=== PATIENT | female | born 1985 | race African-American/Black ===

== ENCOUNTER 2019-01-24 19:50 | Emergency (ER) | payer SELFPAY ==
[~2019-01-24] VITALS: Ht 167.6 cm; Wt 66.0 kg
[2019-01-24] MEDS ORDERED: TETANUS, DIPHTHERIA, PERTUSSIS VAC/PF 0.5ML (>7YR OLD) IM ONE (20:45)
[2019-01-24] MEDS ORDERED: IBUPROFEN 800MG TABLET PO ONE (20:45)
[2019-01-24] MEDS ORDERED: HYDROCODONE/ACETAMINOPHEN 10/325MG TABLET PO ONE (20:45)
[2019-01-24] MEDS ORDERED: LIDOCAINE 1%/EPI 1:100,000 10 ML VIAL IJ ONE (20:45)
[2019-01-24] MEDS ORDERED: BACITRACIN ZINC OINT UDPKT TOP ONE (20:45)
[2019-01-24 21:03] LABS: BASOPHILS % 0.8 % (0.0-2.0); EOSINOPHILS % 1.2 % (0.0-5.0); HEMATOCRIT. 38.7 % (36.0-48.0); HEMOGLOBIN. 12.8 g/dL (12.0-16.0); LYMPHOCYTES % 34.7 % (20.0-50.0); MEAN CORPUSCULAR HEMOGLOBIN 28.8 pg (28.0-32.0); MEAN CORPUSCULAR VOLUME 86.9 fL (81.0-99.0); MEAN PLATELET VOLUME 7.5 fl (7.4-10.4); MONOCYTES % 6.9 % (2.0-8.0); NEUTROPHILS % 56.4 % (40.0-76.0); PLATELET 262 x1000/uL (130-400); RED BLOOD CELL COUNT 4.45 mill/uL (4.2-5.4); RED CELL DISTRIBUTION WIDTH 16.2 % (11.6-14.6)
[2019-01-24 21:09] LABS: CHLORIDE 108 mEq/L (98-107)
[2019-01-24 21:12] LABS: ETHANOL BLOOD 88 mg/dL
[2019-01-24 21:13] LABS: HCG SCREEN NEGATIVE
[2019-01-25] MEDS ORDERED: IBUPROFEN 600MG TABLET PO ONE ×2 (11:00→19:45)
[2019-01-25] MEDS ORDERED: HYDROCODONE/ACETAMINOPHEN 5/325MG TABLET PO ONE (11:00)
[2019-01-26 13:18] VITALS: BP 110/52
== END 2019-01-26 13:20 | disposition home or self-care (01) ==
LOC: ER 19:50
DX: S61.412A Laceration without foreign body of left hand, initial encounter (principal); S61.512A Laceration without foreign body of left wrist, initial encounter; F17.200 Nicotine dependence, unspecified, uncomplicated; F12.10 Cannabis abuse, uncomplicated; F31.9 Bipolar disorder, unspecified; F20.9 Schizophrenia, unspecified; W25.XXXA Contact with sharp glass, initial encounter; Y93.89 Activity, other specified; Y92.89 Other specified places as the place of occurrence of the external cause; Y99.8 Other external cause status
CPT/HCPCS: 12002; 36415; 73100; 73120; 80053; 80307; 80320; 80329; 84443; 84703; 85025; 90471; 90715; 99284; J3490; Z7610; G0480

== ENCOUNTER 2019-02-02 22:31 | Emergency (ER) | payer MEDICAID ==
[~2019-02-02] VITALS: Ht 167.6 cm; Wt 66.0 kg
[2019-02-03] MEDS ORDERED: ACETAMINOPHEN 325MG TABLET PO ONE (00:45)
[2019-02-03 01:12] VITALS: BP 135/85
[2019-02-03] MEDS ORDERED: LIDOCAINE HCL 1% 20ML VIAL (Pyxis) INJ INFIL ONE (01:30)
== END 2019-02-03 01:27 | disposition home or self-care (01) ==
LOC: ER 22:31
DX: Z48.02 Encounter for removal of sutures (principal); L03.114 Cellulitis of left upper limb
CPT/HCPCS: 99283

== ENCOUNTER 2019-05-07 06:13 | Emergency (ER) | payer MEDICAID ==
[~2019-05-07] VITALS: Ht 162.6 cm; Wt 64.0 kg
[2019-05-07] MEDS ORDERED: LORAZEPAM 2MG/ML CPJ IV STA (07:14)
[2019-05-07] MEDS ORDERED: LORAZEPAM 1MG TABLET PO ONE ×2 (07:30→16:30)
[2019-05-07 07:59] LABS: BASOPHILS % 0.7 % (0.0-2.0); EOSINOPHILS % 0.4 % (0.0-5.0); HEMATOCRIT. 35.3 % (36.0-48.0); HEMOGLOBIN. 11.9 g/dL (12.0-16.0); LYMPHOCYTES % 28.2 % (20.0-50.0); MEAN CORPUSCULAR HEMOGLOBIN 30.5 pg (28.0-32.0); MEAN CORPUSCULAR VOLUME 90.5 fL (81.0-99.0); MEAN PLATELET VOLUME 7.5 fl (7.4-10.4); MONOCYTES % 9.4 % (2.0-8.0); NEUTROPHILS % 61.3 % (40.0-76.0); PLATELET 237 x1000/uL (130-400); RED CELL DISTRIBUTION WIDTH 14.1 % (11.6-14.6)
[2019-05-07 08:05] LABS: CHLORIDE 106 mEq/L (98-107)
[2019-05-07 08:09] LABS: ETHANOL BLOOD < 10 mg/dL
[2019-05-07 08:13] LABS: CREATINE KINASE 222 IU/L (26-192)
[2019-05-07 08:56] LABS: CLARITY URINE CLOUDY (CLEAR); COLOR URINE DARK YELLOW (YELLOW); KETONES URINE TRACE (NEGATIVE); LEUKOCYTE ESTERASE URINE TRACE (NEGATIVE); NITRITE URINE NEGATIVE (NEGATIVE); OCCULT BLOOD URINE NEGATIVE (NEGATIVE); PROTEIN URINE 2+ (NEGATIVE)
[2019-05-07 09:10] LABS: *BARBITURATES SCREEN URINE NEGATIVE (NEGATIVE); *BENZODIAZEPINES SCREEN URINE NEGATIVE (NEGATIVE); METHADONE URINE SCREEN NEGATIVE (NEGATIVE); OPIATES URINE SCREEN NEGATIVE (NEGATIVE)
[2019-05-07 09:11] LABS: *AMPHETAMINES SCREEN URINE PRESUMTIVE POSITIVE (NEGATIVE)
[2019-05-07 09:12] LABS: *COCAINE SCREEN URINE PRESUMTIVE POSITIVE (NEGATIVE); CANNABINOID URINE SCREEN PRESUMTIVE POSITIVE (NEGATIVE); PHENCYCLIDINE URINE SCREEN PRESUMTIVE POSITIVE (NEGATIVE)
[2019-05-07] MEDS: NITROFURANTOIN 100MG M/M CAPSULE PO SCH ×2 (10:47→21:00)
[2019-05-08] MEDS ORDERED: ACETAMINOPHEN 325MG TABLET PO ONE (05:15)
[2019-05-08] MEDS ORDERED: LORAZEPAM 2MG/ML CPJ IM ONE (08:45)
[2019-05-08] MEDS: NITROFURANTOIN 100MG M/M CAPSULE PO SCH ×2 (09:03→21:07)
[2019-05-08] MEDS ORDERED: DIPHENHYDRAMINE 50MG CAPSULE PO ONE (23:30)
[2019-05-09] MEDS: OLANZAPINE 5MG TABLET PO SCH ×2 (00:53→21:14)
[2019-05-09] MEDS ORDERED: LORAZEPAM 2MG/ML CPJ IM ONE (05:45)
[2019-05-09] MEDS: NITROFURANTOIN 100MG M/M CAPSULE PO SCH ×2 (09:46→21:14)
[2019-05-10] MEDS ORDERED: NITROFURANTOIN 100MG M/M CAPSULE PO ONE (09:40)
[2019-05-10] MEDS: NITROFURANTOIN 100MG M/M CAPSULE PO SCH (09:43)
[2019-05-10] MEDS ORDERED: IBUPROFEN 400MG TABLET PO ONE (15:00)
[2019-05-10 16:15] VITALS: BP 110/69
== END 2019-05-10 16:17 ==
LOC: ER 06:13
DX: F20.9 Schizophrenia, unspecified (principal); F29 Unspecified psychosis not due to a substance or known physiological condition; F19.10 Other psychoactive substance abuse, uncomplicated; R45.851 Suicidal ideations; F31.9 Bipolar disorder, unspecified; F17.200 Nicotine dependence, unspecified, uncomplicated; Z59.0 Homelessness
CPT/HCPCS: 36415; 80053; 80305; 80307; 80320; 80329; 81003; 82550; 84443; 85025; 96372; 99285; J2060; Q0163; G0480

== ENCOUNTER 2019-05-31 11:07 | Emergency (ER) | payer MEDICAID ==
[~2019-05-31] VITALS: Ht 167.6 cm; Wt 62.0 kg
[2019-05-31] MEDS ORDERED: SODIUM CHLORIDE 0.9% 1,000 ML IV ONE (12:11)
[2019-05-31] MEDS ORDERED: VISCOUS LIDOCAINE 2% 15 ML UDC PO STA (12:11)
[2019-05-31] MEDS ORDERED: MAGNESIUM/ALUMINUM HYDROXIDE/SIMETHICONE 30ML UDC PO STA (12:11)
[2019-05-31] MEDS ORDERED: METOCLOPRAMIDE HCL 10MG/2ML VIAL IV ONE (12:15)
[2019-05-31] MEDS ORDERED: DIPHENHYDRAMINE 50MG/ML VIAL IM ONE (12:15)
[2019-05-31] MEDS ORDERED: METOCLOPRAMIDE HCL 10MG TABLET PO ONE (12:15)
[2019-05-31] MEDS ORDERED: OLANZAPINE 10 MG/VIAL IM ONE (12:15)
[2019-05-31] MEDS ORDERED: DICYCLOMINE HCL 10MG/ML 2ML AMP IM ONE (12:15)
[2019-05-31] MEDS ORDERED: FAMOTIDINE 20MG TABLET PO ONE (12:15)
[2019-05-31] MEDS ORDERED: FAMOTIDINE 20MG/2ML VIAL IV ONE (12:15)
[2019-05-31] MEDS ORDERED: DIPHENHYDRAMINE 50MG/ML VIAL IV ONE (12:15)
[2019-05-31 12:41] LABS: BASOPHILS % 0.3 % (0.0-2.0); EOSINOPHILS % 0.1 % (0.0-5.0); HEMATOCRIT. 38.3 % (36.0-48.0); HEMOGLOBIN. 12.9 g/dL (12.0-16.0); LYMPHOCYTES % 8.8 % (20.0-50.0); MEAN CORPUSCULAR HEMOGLOBIN 30.7 pg (28.0-32.0); MEAN CORPUSCULAR VOLUME 91.1 fL (81.0-99.0); MEAN PLATELET VOLUME 7.2 fl (7.4-10.4); MONOCYTES % 10.1 % (2.0-8.0); NEUTROPHILS % 80.7 % (40.0-76.0); PLATELET 225 x1000/uL (130-400); RED CELL DISTRIBUTION WIDTH 14.1 % (11.6-14.6)
[2019-05-31 12:48] LABS: CHLORIDE 103 mEq/L (98-107)
[2019-05-31 12:52] LABS: ETHANOL BLOOD 38 mg/dL
[2019-05-31 12:53] LABS: INR 1.1; PROTHROMBIN TIME 10.9 sec (9.6-11.0)
[2019-05-31 14:56] LABS: CLARITY URINE CLEAR (CLEAR); COLOR URINE DARK YELLOW (YELLOW); KETONES URINE TRACE (NEGATIVE); LEUKOCYTE ESTERASE URINE 1+ (NEGATIVE); NITRITE URINE NEGATIVE (NEGATIVE); OCCULT BLOOD URINE NEGATIVE (NEGATIVE); PROTEIN URINE 1+ (NEGATIVE); SPECIFIC GRAVITY URINE 1.026 (1.005-1.030)
[2019-05-31 15:13] LABS: *BARBITURATES SCREEN URINE NEGATIVE (NEGATIVE); *BENZODIAZEPINES SCREEN URINE NEGATIVE (NEGATIVE); METHADONE URINE SCREEN NEGATIVE (NEGATIVE)
[2019-05-31 15:14] LABS: CANNABINOID URINE SCREEN NEGATIVE (NEGATIVE)
[2019-05-31 15:15] LABS: *AMPHETAMINES SCREEN URINE PRESUMTIVE POSITIVE (NEGATIVE); *COCAINE SCREEN URINE PRESUMTIVE POSITIVE (NEGATIVE); OPIATES URINE SCREEN PRESUMTIVE POSITIVE (NEGATIVE); PHENCYCLIDINE URINE SCREEN PRESUMTIVE POSITIVE (NEGATIVE)
[2019-06-01 08:00] VITALS: BP 129/72
[2019-06-01] MEDS ORDERED: QUETIAPINE FUMARATE 25MG TABLET PO SCH (09:15)
[2019-06-01] MEDS ORDERED: LORAZEPAM 1MG TABLET PO ONE (09:15)
== END 2019-06-01 10:01 | disposition left against medical advice (07) ==
LOC: ER 11:07
DX: R10.9 Unspecified abdominal pain (principal); K59.00 Constipation, unspecified; D72.829 Elevated white blood cell count, unspecified; F19.10 Other psychoactive substance abuse, uncomplicated; F11.10 Opioid abuse, uncomplicated; F15.10 Other stimulant abuse, uncomplicated; F14.10 Cocaine abuse, uncomplicated; F20.9 Schizophrenia, unspecified; F31.9 Bipolar disorder, unspecified
CPT/HCPCS: 36415; 80053; 80305; 80307; 80320; 80329; 81003; 81025; 83690; 85025; 85610; 96372; 99283; J0500; J1200; J3490; J7030; J8597; G0480

== ENCOUNTER 2019-06-01 11:19 | Emergency (ER) | payer MEDICAID ==
[~2019-06-01] VITALS: Ht 170.2 cm; Wt 59.0 kg
[2019-06-01 11:28] VITALS: BP 132/72
== END 2019-06-01 20:17 | disposition left against medical advice (07) ==
LOC: ER 11:19
DX: F29 Unspecified psychosis not due to a substance or known physiological condition (principal); Z53.21 Procedure and treatment not carried out due to patient leaving prior to being seen by health care provider

== ENCOUNTER 2019-06-10 22:42 | Emergency (ER) | payer MEDICAID ==
[~2019-06-10] VITALS: Ht 167.6 cm; Wt 59.0 kg
[2019-06-11] MEDS ORDERED: IBUPROFEN 600MG TABLET PO STA (00:50)
[2019-06-11 06:12] VITALS: BP 134/84
== END 2019-06-11 06:15 | disposition home or self-care (01) ==
LOC: ER 22:42
DX: J20.9 Acute bronchitis, unspecified (principal); F12.10 Cannabis abuse, uncomplicated; F31.9 Bipolar disorder, unspecified; F20.9 Schizophrenia, unspecified; Z98.890 Other specified postprocedural states
CPT/HCPCS: 71045; 99283

== ENCOUNTER 2019-07-17 20:39 | Emergency (ER) | payer MEDICAID ==
[~2019-07-17] VITALS: Ht 167.6 cm; Wt 67.0 kg
[2019-07-17] MEDS ORDERED: LORAZEPAM 2MG/ML CPJ IM STA (22:38)
[2019-07-17] MEDS ORDERED: OLANZAPINE 10 MG/VIAL IM ONE (22:45)
[2019-07-17 23:08] LABS: CLARITY URINE CLEAR (CLEAR); COLOR URINE YELLOW (YELLOW); KETONES URINE TRACE (NEGATIVE); LEUKOCYTE ESTERASE URINE TRACE (NEGATIVE); NITRITE URINE NEGATIVE (NEGATIVE); OCCULT BLOOD URINE NEGATIVE (NEGATIVE); PH URINE 5.5 (4.5-8.0); PROTEIN URINE NEGATIVE (NEGATIVE); SPECIFIC GRAVITY URINE 1.028 (1.005-1.030)
[2019-07-17] MEDS ORDERED: IBUPROFEN 400MG TABLET PO ONE (23:15)
[2019-07-17 23:30] LABS: *BARBITURATES SCREEN URINE NEGATIVE (NEGATIVE)
[2019-07-17 23:31] LABS: *BENZODIAZEPINES SCREEN URINE NEGATIVE (NEGATIVE); METHADONE URINE SCREEN NEGATIVE (NEGATIVE); OPIATES URINE SCREEN NEGATIVE (NEGATIVE)
[2019-07-17 23:32] LABS: CHLORIDE 106 mEq/L (98-107)
[2019-07-17 23:32] LABS: CANNABINOID URINE SCREEN NEGATIVE (NEGATIVE)
[2019-07-17 23:36] LABS: ETHANOL BLOOD < 10 mg/dL
[2019-07-17 23:43] LABS: BASOPHILS % 0.5 % (0.0-2.0); EOSINOPHILS % 0.5 % (0.0-5.0); HEMOGLOBIN. 11.8 g/dL (12.0-16.0); LYMPHOCYTES % 32.8 % (20.0-50.0); MEAN CORPUSCULAR HEMOGLOBIN 30.6 pg (28.0-32.0); MEAN CORPUSCULAR VOLUME 90.3 fL (81.0-99.0); MEAN PLATELET VOLUME 7.7 fl (7.4-10.4); MONOCYTES % 11.6 % (2.0-8.0); NEUTROPHILS % 54.6 % (40.0-76.0); PLATELET 285 x1000/uL (130-400); RED BLOOD CELL COUNT 3.87 mill/uL (4.2-5.4); RED CELL DISTRIBUTION WIDTH 14.9 % (11.6-14.6)
[2019-07-17 23:48] LABS: *AMPHETAMINES SCREEN URINE PRESUMTIVE POSITIVE (NEGATIVE); *COCAINE SCREEN URINE PRESUMTIVE POSITIVE (NEGATIVE); PHENCYCLIDINE URINE SCREEN PRESUMTIVE POSITIVE (NEGATIVE)
[2019-07-17 23:53] LABS: HCG SCREEN NEGATIVE
[2019-07-18] MEDS ORDERED: LIDOCAINE HCL 1% 20ML VIAL (Pyxis) INJ INFIL ONE (00:30)
[2019-07-18] MEDS ORDERED: CEFTRIAXONE SODIUM 1 G/VIAL IM ONE (00:30)
[2019-07-18] MEDS ORDERED: LORAZEPAM 2MG/ML CPJ IM PRN (14:30)
[2019-07-18] MEDS ORDERED: HALOPERIDOL LACTATE 5MG/ML VIAL IM ONE (14:30)
[2019-07-19] MEDS ORDERED: VENLAFAXINE HCL 37.5MG SR CAPSULE 24HR PO SCH (09:30)
[2019-07-19] MEDS ORDERED: LORAZEPAM 1MG TABLET PO ONE (09:30)
[2019-07-19 10:32] VITALS: BP 113/62
[2019-07-19] MEDS ORDERED: OLANZAPINE 10MG TABLET PO SCH (21:00)
== END 2019-07-19 13:42 ==
LOC: ER 20:39
DX: F23 Brief psychotic disorder (principal); N39.0 Urinary tract infection, site not specified; M79.672 Pain in left foot; M25.572 Pain in left ankle and joints of left foot; R51 Headache; F31.9 Bipolar disorder, unspecified; R45.851 Suicidal ideations; F15.10 Other stimulant abuse, uncomplicated; F12.10 Cannabis abuse, uncomplicated; F17.210 Nicotine dependence, cigarettes, uncomplicated; Z91.14 Patient's other noncompliance with medication regimen; Z75.1 Person awaiting admission to adequate facility elsewhere
CPT/HCPCS: 36415; 70450; 73610; 73620; 80053; 80305; 80307; 80320; 80329; 81003; 84703; 85025; 87086; 96372; 99285; J0696; J1630; J2060; J3490; Z7610; G0480

== ENCOUNTER 2019-10-05 13:10 | Emergency (ER) | payer MEDICAID ==
[~2019-10-05] VITALS: Ht 172.7 cm; Wt 85.0 kg
[2019-10-05] MEDS ORDERED: ACETAMINOPHEN 325MG TABLET PO PRN (14:15)
[2019-10-05 14:35] LABS: BASOPHILS % 0.5 % (0.0-2.0); EOSINOPHILS % 0.9 % (0.0-5.0); HEMATOCRIT. 37.7 % (36.0-48.0); HEMOGLOBIN. 12.7 g/dL (12.0-16.0); LYMPHOCYTES % 24.6 % (20.0-50.0); MEAN CORPUSCULAR HEMOGLOBIN 30.7 pg (28.0-32.0); MEAN CORPUSCULAR VOLUME 91.2 fL (81.0-99.0); MEAN PLATELET VOLUME 8.3 fl (7.4-10.4); MONOCYTES % 8.5 % (2.0-8.0); NEUTROPHILS % 65.5 % (40.0-76.0); PLATELET 260 x1000/uL (130-400); RED BLOOD CELL COUNT 4.13 mill/uL (4.2-5.4); RED CELL DISTRIBUTION WIDTH 15.3 % (11.6-14.6)
[2019-10-05 14:37] LABS: CHLORIDE 106 mEq/L (98-107)
[2019-10-05 15:01] LABS: B-HCG QUANTITATIVE 5282 mIU/mL (<3)
[2019-10-05] MEDS ORDERED: RHO(D) IMMUNE GLOBULIN 300 MCG/SYR IM ONE (17:00)
[2019-10-05 17:33] LABS: CLARITY URINE CLEAR (CLEAR); COLOR URINE YELLOW (YELLOW); KETONES URINE NEGATIVE (NEGATIVE); LEUKOCYTE ESTERASE URINE 2+ (NEGATIVE); NITRITE URINE NEGATIVE (NEGATIVE); OCCULT BLOOD URINE 3+ (NEGATIVE); PH URINE 7.5 (4.5-8.0); PROTEIN URINE 3+ (NEGATIVE); SPECIFIC GRAVITY URINE 1.017 (1.005-1.030)
[2019-10-05] MEDS ORDERED: CEFTRIAXONE 1 G PREMIX 50 ML IV NR (19:00)
[2019-10-05 20:51] VITALS: BP 120/75
[2019-10-05] MEDS ORDERED: OLANZAPINE 10MG TABLET PO SCH (21:00)
[2019-10-06] MEDS ORDERED: VENLAFAXINE HCL 75MG TABLET PO SCH (09:00)
== END 2019-10-05 20:52 | disposition home or self-care (01) ==
LOC: ER 13:10
DX: O46.90 Antepartum hemorrhage, unspecified, unspecified trimester (principal); O26.899 Other specified pregnancy related conditions, unspecified trimester; R45.1 Restlessness and agitation; F17.200 Nicotine dependence, unspecified, uncomplicated; Z3A.00 Weeks of gestation of pregnancy not specified
CPT/HCPCS: 36415; 76801; 76817; 80053; 81003; 81025; 84702; 85025; 86850; 86900; 86901; 90384; 96372; 96374; 99285; J0696

== ENCOUNTER 2019-10-08 12:12 | Emergency (ER) | payer MEDICAID ==
[~2019-10-08] VITALS: Ht 165.1 cm; Wt 68.5 kg
[2019-10-08 12:22] VITALS: BP 138/90
[2019-10-08] MEDS ORDERED: zyprexa (12:22)
[2019-10-08] MEDS ORDERED: effexor (12:22)
== END 2019-10-08 13:45 | disposition home or self-care (01) ==
LOC: ER 12:12
DX: N93.9 Abnormal uterine and vaginal bleeding, unspecified (principal)
CPT/HCPCS: 36415; 84702; 99283; 99284

== ENCOUNTER 2020-03-21 17:15 | Inpatient (IN) | payer MEDICAID ==
[~2020-03-21] VITALS: Ht 165.1 cm; Wt 68.0 kg
[~2020-03-21 17:15] MED LIST: effexor; zyprexa
[2020-03-21] MEDS ORDERED: SODIUM CHLORIDE 0.9% 1,000 ML IV ONE (18:51)
[2020-03-21] MEDS ORDERED: KETOROLAC 30MG/ML VIAL IV STA (18:51)
[2020-03-21 19:33] LABS: BASOPHILS % 0.6 % (0.0-2.0); EOSINOPHILS % 0.8 % (0.0-5.0); HEMATOCRIT. 35.6 % (36.0-48.0); HEMOGLOBIN. 11.7 g/dL (12.0-16.0); LYMPHOCYTES % 21.7 % (20.0-50.0); MEAN CORPUSCULAR HEMOGLOBIN 28.6 pg (28.0-32.0); MEAN CORPUSCULAR VOLUME 86.8 fL (81.0-99.0); MEAN PLATELET VOLUME 7.3 fl (7.4-10.4); MONOCYTES % 6.7 % (2.0-8.0); NEUTROPHILS % 70.2 % (40.0-76.0); PLATELET 249 x1000/uL (130-400); RED CELL DISTRIBUTION WIDTH 18.6 % (11.6-14.6)
[2020-03-21 19:35] LABS: CHLORIDE 104 mEq/L (98-107)
[2020-03-21 19:39] LABS: ETHANOL BLOOD < 10 mg/dL
[2020-03-21 19:44] LABS: HCG SCREEN NEGATIVE
[2020-03-21] MEDS ORDERED: MORPHINE SULFATE 4 MG/ML CPJ (NOT FOR IM USE) IV ONE ×2 (20:45→21:00)
[2020-03-21] MEDS ORDERED: ONDANSETRON HCL 4MG/2ML INJ IV ONE (21:00)
[2020-03-21 21:49] LABS: *AMPHETAMINES SCREEN URINE NEGATIVE (NEGATIVE); *BARBITURATES SCREEN URINE NEGATIVE (NEGATIVE); *BENZODIAZEPINES SCREEN URINE NEGATIVE (NEGATIVE); *COCAINE SCREEN URINE NEGATIVE (NEGATIVE); METHADONE URINE SCREEN NEGATIVE (NEGATIVE); OPIATES URINE SCREEN NEGATIVE (NEGATIVE)
[2020-03-21 21:50] LABS: CANNABINOID URINE SCREEN NEGATIVE (NEGATIVE); PHENCYCLIDINE URINE SCREEN NEGATIVE (NEGATIVE)
[2020-03-21 23:54] VITALS: BP 152/111
[2020-03-22] VITALS (13 sets, daily range): BP systolic 108–159; BP diastolic 66–101
[2020-03-22] MEDS: ONDANSETRON HCL 4MG/2ML INJ IV PRN ×3 (00:55→17:38)
[2020-03-22] MEDS: MORPHINE SULFATE 2 MG/ML CPJ (NOT FOR IM USE) IV PRN ×5 (00:57→20:45)
[2020-03-22] MEDS: DEXT 5%/0.45% NACL KCL 20MEQ/L 1,000 ML IV SCH ×3 (02:29→17:38)
[2020-03-22 07:18] LABS: BASOPHILS % 0.3 % (0.0-2.0); EOSINOPHILS % 1.2 % (0.0-5.0); HEMATOCRIT. 32.8 % (36.0-48.0); HEMOGLOBIN. 10.7 g/dL (12.0-16.0); MEAN CORPUSCULAR HEMOGLOBIN 28.1 pg (28.0-32.0); MEAN CORPUSCULAR VOLUME 85.8 fL (81.0-99.0); MEAN PLATELET VOLUME 7.5 fl (7.4-10.4); MONOCYTES % 12.5 % (2.0-8.0); PLATELET 231 x1000/uL (130-400); RED BLOOD CELL COUNT 3.82 mill/uL (4.2-5.4)
[2020-03-22 07:56] LABS: CHLORIDE 104 mEq/L (98-107)
[2020-03-22] MEDS: PANTOPRAZOLE SODIUM 40 MG/VIAL IV SCH (08:46)
[2020-03-22] MEDS: HYDROCODONE/ACETAMINOPHEN 5/325MG TABLET PO PRN (15:13)
[2020-03-23] VITALS (12 sets, daily range): BP systolic 103–137; BP diastolic 61–82
[2020-03-23] MEDS: DEXT 5%/0.45% NACL KCL 20MEQ/L 1,000 ML IV SCH (01:44)
[2020-03-23 06:13] LABS: CHLORIDE 105 mEq/L (98-107)
[2020-03-23 06:17] LABS: BASOPHILS % 0.1 % (0.0-2.0); EOSINOPHILS % 2.2 % (0.0-5.0); HEMATOCRIT. 32.3 % (36.0-48.0); HEMOGLOBIN. 10.7 g/dL (12.0-16.0); LYMPHOCYTES % 28.1 % (20.0-50.0); MEAN CORPUSCULAR HEMOGLOBIN 28.7 pg (28.0-32.0); MEAN CORPUSCULAR VOLUME 86.5 fL (81.0-99.0); MEAN PLATELET VOLUME 7.4 fl (7.4-10.4); MONOCYTES % 14.3 % (2.0-8.0); NEUTROPHILS % 55.3 % (40.0-76.0); PLATELET 225 x1000/uL (130-400); RED BLOOD CELL COUNT 3.73 mill/uL (4.2-5.4); RED CELL DISTRIBUTION WIDTH 19.1 % (11.6-14.6)
[2020-03-23] MEDS: PANTOPRAZOLE SODIUM 40 MG/VIAL IV SCH (09:21)
[2020-03-23] MEDS: HYDROCODONE/ACETAMINOPHEN 5/325MG TABLET PO PRN ×4 (09:51→22:31)
[2020-03-23] MEDS ORDERED: HYDR-4001 PO (13:54)
[2020-03-23] MEDS: OLANZAPINE 10MG TABLET PO SCH (20:31)
[2020-03-23] MEDS: VENLAFAXINE HCL 37.5MG SR CAPSULE 24HR PO SCH (20:31)
[2020-03-24 04:00] VITALS: BP 114/69
[2020-03-24 06:07] LABS: HEMATOCRIT 33.2 % (36.0-48.0); HEMOGLOBIN 10.9 g/dL (12.0-16.0)
[2020-03-24 08:00] VITALS: BP 111/65
[2020-03-24] MEDS: VENLAFAXINE HCL 37.5MG SR CAPSULE 24HR PO SCH (08:26)
[2020-03-24] MEDS: FAMOTIDINE 20MG TABLET PO SCH ×2 (08:26→16:27)
[2020-03-24] MEDS: OLANZAPINE 10MG TABLET PO SCH ×2 (08:26→20:13)
[2020-03-24] MEDS: HYDROCODONE/ACETAMINOPHEN 5/325MG TABLET PO PRN ×3 (09:38→23:10)
[2020-03-24 10:00] VITALS: BP 109/75
[2020-03-24 12:00] VITALS: BP 131/78
[2020-03-24 16:00] VITALS: BP 131/80
[2020-03-24 20:00] VITALS: BP 120/81
[2020-03-25] VITALS: BP 122/74
[2020-03-25 04:00] VITALS: BP 111/69
[2020-03-25 08:00] VITALS: BP 107/63
[2020-03-25] MEDS: VENLAFAXINE HCL 37.5MG SR CAPSULE 24HR PO SCH (09:03)
[2020-03-25] MEDS: FAMOTIDINE 20MG TABLET PO SCH (09:03)
[2020-03-25] MEDS: OLANZAPINE 10MG TABLET PO SCH (09:03)
[2020-03-25] MEDS: HYDROCODONE/ACETAMINOPHEN 5/325MG TABLET PO PRN ×2 (09:04→15:00)
[2020-03-25 12:00] VITALS: BP 116/65
[2020-03-25 15:00] VITALS: BP 116/65
[2020-03-25] MEDS ORDERED: SULFAMETHOXAZOLE/TRIMETHOPRIM 400/80MG TAB PO SCH (21:00)
[2020-03-25] MEDS ORDERED: AMOXICILLIN/POTASSIUM CLAVULANATE 875/125MG TAB PO SCH (21:00)
== END 2020-03-25 16:54 | disposition left against medical advice (07) ==
LOC: ER 17:15 → 5EST 21:19 → EDBEDREQTM 21:24 → EDBEDREQ 21:24 → EDBEDREQSVC 21:24 → ENRESERV 21:44 → 5EST 03-22 07:34 → 6EST 03-24 15:14
PROVIDERS: ADMIT Internal Medicine; ATTEND Internal Medicine
DX: S36.113A Laceration of liver, unspecified degree, initial encounter (principal); E44.1 Mild protein-calorie malnutrition; F20.9 Schizophrenia, unspecified; F31.9 Bipolar disorder, unspecified; N83.201 Unspecified ovarian cyst, right side; D64.9 Anemia, unspecified; J90 Pleural effusion, not elsewhere classified; E04.1 Nontoxic single thyroid nodule; X58.XXXA Exposure to other specified factors, initial encounter; Z20.828 Contact with and (suspected) exposure to other viral communicable diseases; F20.0 Paranoid schizophrenia; D25.9 Leiomyoma of uterus, unspecified; Z68.25 Body mass index [BMI] 25.0-25.9, adult; Z79.899 Other long term (current) drug therapy; Y92.89 Other specified places as the place of occurrence of the external cause; Y93.89 Activity, other specified; Y99.8 Other external cause status; V89.2XXA Person injured in unspecified motor-vehicle accident, traffic, initial encounter
CPT/HCPCS: 36415; 71045; 71260; 73562; 74177; 80048; 80053; 80305; 80320; 84484; 84703; 85014; 85018; 85025; 87070; 87077; 93005; 97162; 99291; C9113; J2270; J2405; J7030; Q9967; G0480; U0003-CS

== ENCOUNTER 2021-01-30 10:18 | Emergency (ER) | payer MEDICAID ==
[~2021-01-30] VITALS: Ht 157.5 cm; Wt 75.0 kg
[~2021-01-30 10:18] MED LIST changes: +HYDR-4001 PO
[2021-01-30 10:20] VITALS: BP 123/71
== END 2021-01-30 14:37 | disposition left against medical advice (07) ==
LOC: ER 10:30
DX: R21 Rash and other nonspecific skin eruption (principal); Z53.21 Procedure and treatment not carried out due to patient leaving prior to being seen by health care provider